=== PATIENT | male | born 1975 | race Caucasian/White ===

== ENCOUNTER → 2016-06-18 | Outpatient (CLI) | payer OTHER ==
[2016-04-26 21:43] VITALS: BP 177/88
[~2016-06-18] MED LIST: CYCL10TA2 PO; FLUO20CA16 PO; HYDR-971 PO; METH4TAB2 PO; NAPR500T8 PO; PRED50TA PO
[2016-06-18 12:24] LABS: BASO % 0 % (0-3); EOS % 3 % (0-3); HEMATOCRIT 40.5 % (39.0-53.0); HEMOGLOBIN 13.5 g/dL (13.0-17.5); LYMPH # 2.9 x10^3/uL (1.0-4.8); LYMPH % 17 % (24-48); MEAN CORPUSCULAR HEMOGLOBIN 31 pg (25-35); MEAN CORPUSCULAR HGB CONC 34 g/dL (31-37); MEAN CORPUSCULAR VOLUME 92 fL (79-100); MONO % 5 % (0-9); NEUT % 75 % (31-73); PLATELET COUNT 217 x10^3/uL (140-400); RED BLOOD COUNT 4.39 x10^6/uL (4.30-5.70); RED CELL DISTRIBUTION WIDTH 13.8 % (11.5-14.5); WHITE BLOOD COUNT 16.9 x10^3/uL (4.0-11.0)
[2016-06-18 12:33] LABS: INR 0.9 (0.8-1.1); PROTHROMBIN TIME PATIENT 11.9 SEC (11.7-14.0)
[2016-06-18 12:43] LABS: ALBUMIN 3.5 g/dL (3.4-5.0); CALCIUM 8.7 mg/dL (8.5-10.1); CREATININE 0.9 mg/dL (0.7-1.3); GFR 92.5; POTASSIUM 4.1 mmol/L (3.5-5.1); TOTAL BILIRUBIN 0.2 mg/dL (0.2-1.0); TOTAL PROTEIN 6.9 g/dL (6.4-8.2)
== END | disposition home or self-care (01) ==
LOC: SURGPAT 11:14
PROVIDERS: ATTEND Neurological Surgery
DX: Z01.818 Encounter for other preprocedural examination (principal)
CPT/HCPCS: 36415; 80053; 85027; 85610; 85730; 87641

== ENCOUNTER 2016-07-08 07:14 | Day surgery (SDC) | payer OTHER ==
[~2016-07-08 07:14] MED LIST changes: +0.9 % SODIUM CHLORIDE 50 ML VIAL. IJ ONE; +BUPIVAC MPF-EPI 0.5%-1:200000 30 ML VIAL. ONE; +BUPIVACAINE 0.5% 50 ML VIAL. ONE; +BUPIVACAINE MPF 0.5% 30 ML VIAL. ONE; +DEXAMETHASONE SOD PHOS 20 MG/5 ML VIAL. ONE; +FENTANYL PF 100 MCG/2 ML VIAL. IV PRN; +FENTANYL PF 100 MCG/2 ML VIAL. ONE; +GELATIN SPONGE SIZE 100. ONE; +IV RINGERS,LACTATED 1000ML 1,000 ML IV SCH; +LIDOCAINE 1% 1 ML SYRINGE. ID PRN; +LIDOCAINE 1%/EPI 1:100,000 20 ML VIAL. ONE; +LIDOCAINE 2% 100 MG/5 ML DISP.SYRIN. ONE; +MIDAZOLAM HCL 2 MG/2 ML VIAL. ONE; +MORPHINE SULFATE 2 MG/ML DISP.SYRIN. IV PRN; +ONDANSETRON PF 4 MG/2 ML VIAL. IV PRN; +ONDANSETRON PF 4 MG/2 ML VIAL. ONE; +PROCHLORPERAZINE 10 MG/2 ML VIAL. IV PRN; +PROPOFOL 20 ML IV ONE; +PROPOFOL 50 ML IV ONE; +REMIFENTANIL 2 MG VIAL. IV ONE; +ROCURONIUM 50 MG/5 ML VIAL. ONE; +THROMBIN 20,000 UNIT SPRAY.SYRN KIT TP ONE
[2016-07-08] MEDS ORDERED: CEFAZOLIN 2GM PREMIX 50 ML IV ONE (07:15)
[2016-07-08] MEDS ORDERED: PHENYLEPHRINE 10 MG/ML VIAL. ONE (08:04)
[2016-07-08] MEDS ORDERED: GLYCOPYRROLATE 1 MG/5 ML VIAL. ONE (09:04)
[2016-07-08] MEDS ORDERED: KETAMINE HCL 500 MG/10 ML VIAL. ONE (09:22)
[2016-07-08] MEDS: BACITRACIN 50,000 UNIT in IV NORMAL SALINE 1000ML BAG 1,000 ML IRR ONE ×2 (09:35→09:43)
[2016-07-08] MEDS ORDERED: DESFLURANE > 120 MINUTES IH ONE (10:02)
[2016-07-08] MEDS ORDERED: PROPOFOL 50 ML IV ONE (10:18)
[2016-07-08] MEDS ORDERED: NEOSTIGMINE METHYLSULFATE 5 MG/5 ML SYRINGE. ONE (10:59)
--- NOTE | 2016-07-08 11:12 | PDOC ---
BRIEF OPERATIVE NOTE Date: Jul 08, 2016 Pre-Op Diagnosis lumbar radiculopathy, lumbar disk herniation Post-Op Diagnosis same Procedure Performed right L5-S1 hemilaminotomy with discectomy Surgeon Al Wash Driller none Anesthesia Type: General Blood Loss 25mL Specimens Obtained disk and decompression Findings herniated disk with mass effect on the adjacent neural elements Complications none apparent Additional Remarks neuromonitoring remained at least baseline throughout the procedure SULY CARROLL MD Jul 08, 2016 11:12
--- NOTE | 2016-07-08 11:18 | DISCH ---
DISCHARGE INSTRUCTIONS Condition on Discharge Condition on Discharge: Stable Activity After Discharge Activity Instructions for Disc: Avoid exertion, Progressive ambulation, Other, see below (avoid strenuous activity or lifting more than 10 lbs; avoid excess twisting or bending) Lifting Instructions after Dis: Do not lift >10 pounds Wound Incision Care Wound/Incision Care: Other, see below (may remove dressing day3 after surgery; keep incision clean and dry; do not soak, scrub, or submerge incision) Contacting the after DC Call your doctor for: Concerns you may have Follow-Up Follow up with: Dr. Carroll in two weeks [phone] SULY CARROLL MD Jul 08, 2016 11:18
[2016-07-08] MEDS ORDERED: FENTANYL PF 100 MCG/2 ML VIAL. ONE (11:30)
[2016-07-08] MEDS: HYDROMORPHONE 2 MG/ML VIAL. IV PRN ×2 (11:35→11:48)
[2016-07-08] MEDS: FENTANYL PF 100 MCG/2 ML VIAL. IV PRN ×4 (11:58→12:45)
[2016-07-08] MEDS ORDERED: OXYC-323 PO (12:16)
[2016-07-08] MEDS ORDERED: OXYCODONE/APAP 5/325 TABLET. ONE (12:31)
[2016-07-08] MEDS ORDERED: OXYCODONE/APAP 5/325 TABLET. PO ONE (12:45)
[2016-07-08 13:00] VITALS: BP 128/80
--- NOTE | 2016-07-09 15:37 | PATHOLOGY ---
PATHOLOGY REPORT * * * * * * * * FINAL DIAGNOSIS: Segments of fibrocartilaginous, adipose, and skeletal muscle tissue and bone, lumbar disc and decompression: - Degenerative changes of fibrocartilaginous tissue. COMMENT: There is no evidence of an acute inflammatory process or malignancy. (JPM:; d/t: 07/09/16) REPORT ELECTRONICALLY SIGNED BY: Wilbetr Brito M.D. DATE/TIME: 07/09/2016 15:36 * * * * * * * * GROSS PATHOLOGY: Received in formalin labeled "Bharath Gaytan-lumbar disc and decompression," are multiple segments of white-cronin to pink-cronin rubbery and gritty tissue admixed with possible bone measuring 5.4 x 4.5 x 0.7 cm in aggregate dimensions. The tissue is submitted representatively in cassette A1, following decalcification. (TTL; 07/08/2016) INITIAL CPT CODE(S): A; 51338, 90532 Professional services [place] [address] Technical services performed by [facility] at [address] [place] [address] [address], [place] [address]. SPECIMEN(S) RECEIVED: A.Lumbar disc and decompression CLINICAL HISTORY: Radiculopathy PATIENT: BHARATH GAYTAN /AGE: 9 1975 (Age: 41) PATIENT #: [id number] ALT CASE #: SPECIMEN COLLECTION DATE: 07/08/2016 SPECIMEN RECEIVED DATE: 07/08/2016 [facility] - [address] [place] [address] - PHONE: [phone] * * * END OF REPORT * * *
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
== END 2016-07-08 13:15 | disposition home or self-care (01) ==
LOC: SURG 07:14
PROVIDERS: ATTEND Neurological Surgery
DX: M51.16 Intervertebral disc disorders with radiculopathy, lumbar region (principal); M19.90 Unspecified osteoarthritis, unspecified site; F32.9 Major depressive disorder, single episode, unspecified; F17.200 Nicotine dependence, unspecified, uncomplicated
CPT/HCPCS: 63030; 76000; 88304; 88311; J0690; J1100; J1170; J2250; J2405; J2704; J2710; J3010; J3490; J7030; J7120

== ENCOUNTER 2016-10-30 17:59 | Emergency (ER) | payer OTHER ==
[~2016-10-30] VITALS: Ht 182.9 cm; Wt 111.6 kg
[~2016-10-30 17:59] MED LIST changes: -0.9 % SODIUM CHLORIDE 50 ML VIAL. IJ ONE; -BUPIVAC MPF-EPI 0.5%-1:200000 30 ML VIAL. ONE; -BUPIVACAINE 0.5% 50 ML VIAL. ONE; -BUPIVACAINE MPF 0.5% 30 ML VIAL. ONE; -DEXAMETHASONE SOD PHOS 20 MG/5 ML VIAL. ONE; -FENTANYL PF 100 MCG/2 ML VIAL. IV PRN; -FENTANYL PF 100 MCG/2 ML VIAL. ONE; -GELATIN SPONGE SIZE 100. ONE; -IV RINGERS,LACTATED 1000ML 1,000 ML IV SCH; -LIDOCAINE 1% 1 ML SYRINGE. ID PRN; -LIDOCAINE 1%/EPI 1:100,000 20 ML VIAL. ONE; -LIDOCAINE 2% 100 MG/5 ML DISP.SYRIN. ONE; -MIDAZOLAM HCL 2 MG/2 ML VIAL. ONE; -MORPHINE SULFATE 2 MG/ML DISP.SYRIN. IV PRN; -ONDANSETRON PF 4 MG/2 ML VIAL. IV PRN; -ONDANSETRON PF 4 MG/2 ML VIAL. ONE; +OXYC-323 PO; -PROCHLORPERAZINE 10 MG/2 ML VIAL. IV PRN; -PROPOFOL 20 ML IV ONE; -PROPOFOL 50 ML IV ONE; -REMIFENTANIL 2 MG VIAL. IV ONE; -ROCURONIUM 50 MG/5 ML VIAL. ONE; -THROMBIN 20,000 UNIT SPRAY.SYRN KIT TP ONE
[2016-10-30 18:05] VITALS: BP 153/103
[2016-10-30] MEDS ORDERED: PRED20TA PO (18:24)
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
[2016-10-30] MEDS ORDERED: methylPREDNISolone SOD SUCC PF 125 MG/2 ML VIAL. IM ONE (18:30)
== END 2016-10-30 18:30 | disposition home or self-care (01) ==
LOC: ER 17:59
DX: M54.42 Lumbago with sciatica, left side (principal); Z98.890 Other specified postprocedural states
CPT/HCPCS: 96372; 99283; J2930

== ENCOUNTER → 2016-12-01 | Outpatient (CLI) | payer OTHER ==
[~2016-12-01] MED LIST changes: +PRED20TA PO
--- NOTE | 2016-12-01 09:33 | RAD ---
EXAM: MRI LUMBAR SPINE WITHOUT CONTRAST. HISTORY: Low back pain and left lower extremity radiculopathy after injury. Prior discectomy. TECHNIQUE: Magnetic resonance images of the lumbar spine were obtained without contrast. COMPARISON: March 02, 2016. FINDINGS: Alignment is normal. No fractures are identified. Degenerative disc disease is mild at L5-S1. The conus is at L1 and appears normal. At T12-L1, there is a moderate central disc protrusion measuring 5 mm anteroposteriorly. There is no clear interval change. It abuts the anterior conus with mild deformity. From L1 through L5, there is mild facet and ligamentum flavum hypertrophy. There is no stenosis. At L5-S1, there are changes of right hemilaminotomy and interval resection of the right-sided portion of a broad disc herniation. There is interval increase in the left-sided portion which now narrows the left lateral recess moderately to severely with mass effect on the left S1 nerve root. It measures 5 mm anteroposteriorly. There is no significant neural foraminal stenosis. IMPRESSION: 1. The left portion of the disc herniation at L5-S1 appears increased and now results in moderate to severe left lateral recess stenosis with mass effect on the left S1 nerve root. The right lateral recess has been decompressed in the interval. 2. Moderate disc herniation at T12-L1 abuts the anterior conus with mild deformity. Electronically signed by: Rayray Sullivan MD (12/01/2016 9:30 AM)
== END | disposition home or self-care (01) ==
LOC: MRI 08:17
PROVIDERS: ATTEND Neurological Surgery
DX: M48.06 Spinal stenosis, lumbar region (principal); M51.17 Intervertebral disc disorders with radiculopathy, lumbosacral region; M51.15 Intervertebral disc disorders with radiculopathy, thoracolumbar region; M24.28 Disorder of ligament, vertebrae; S39.92XD Unspecified injury of lower back, subsequent encounter; Z98.890 Other specified postprocedural states; X58.XXXD Exposure to other specified factors, subsequent encounter
CPT/HCPCS: 72148

== ENCOUNTER 2016-12-07 16:24 | Emergency (ER) | payer OTHER ==
[~2016-12-07] VITALS: Ht 182.9 cm; Wt 111.1 kg
[2016-12-07 16:49] VITALS: BP 141/87
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
[2016-12-07] MEDS ORDERED: ORPHENADRINE CITRATE 60 MG/2 ML VIAL. IM ONE (17:15)
[2016-12-07] MEDS ORDERED: KETOROLAC TROMETHAMINE 60 MG/2 ML INJ. IM ONE (17:15)
[2016-12-07] MEDS ORDERED: CYCL10TA2 PO (17:15)
[2016-12-07] MEDS ORDERED: ACET-704 PO (17:15)
[2016-12-07] MEDS ORDERED: fentaNYL PF VIAL 100 MCG/2 ML VIAL IM ONE (17:15)
[2016-12-07] MEDS ORDERED: NAPR500T PO (17:15)
== END 2016-12-07 17:45 | disposition home or self-care (01) ==
LOC: ER 16:24
DX: M54.42 Lumbago with sciatica, left side (principal); G89.29 Other chronic pain
CPT/HCPCS: 96372; 99284; J1885; J2360; J3010

== ENCOUNTER → 2016-12-22 | Outpatient (CLI) | payer OTHER ==
[2016-12-07 16:49] VITALS: BP 141/87
[~2016-12-22] MED LIST changes: +ACET-704 PO; +METH-38 PO; +NAPR500T PO; +SENN1TAB7 PO
[2016-12-22 14:27] LABS: BASO # 0.1 x10^3/uL (0.0-0.2); BASO % 1 % (0-3); EOS % 3 % (0-3); HEMATOCRIT 42.4 % (39.0-53.0); HEMOGLOBIN 14.5 g/dL (13.0-17.5); LYMPH # 2.3 x10^3/uL (1.0-4.8); LYMPH % 23 % (24-48); MEAN CORPUSCULAR HEMOGLOBIN 31 pg (25-35); MEAN CORPUSCULAR HGB CONC 34 g/dL (31-37); MEAN CORPUSCULAR VOLUME 90 fL (79-100); MONO % 6 % (0-9); NEUT % 67 % (31-73); PLATELET COUNT 194 x10^3/uL (140-400); RED CELL DISTRIBUTION WIDTH 14.3 % (11.5-14.5)
[2016-12-22 14:41] LABS: PROTHROMBIN TIME PATIENT 12.5 SEC (11.7-14.0)
[2016-12-22 14:47] LABS: ALBUMIN 3.7 g/dL (3.4-5.0); CALCIUM 9.3 mg/dL (8.5-10.1); CREATININE 0.8 mg/dL (0.7-1.3); POTASSIUM 4.1 mmol/L (3.5-5.1); TOTAL BILIRUBIN 0.2 mg/dL (0.2-1.0); TOTAL PROTEIN 7.5 g/dL (6.4-8.2)
== END | disposition home or self-care (01) ==
LOC: SURGPAT 13:25
PROVIDERS: ATTEND Neurological Surgery
DX: M54.16 Radiculopathy, lumbar region (principal)
CPT/HCPCS: 36415; 80053; 85027; 85610; 85730; 87641

== ENCOUNTER 2016-12-23 12:12 | Observation (INO) | payer OTHER ==
[~2016-12-23] VITALS: Ht 182.9 cm; Wt 112.1 kg
[2016-12-23] VITALS (10 sets, daily range): BP systolic 115–138; BP diastolic 70–90
[~2016-12-23 12:12] MED LIST changes: +BACITRACIN 50,000 UNIT in IV NORMAL SALINE 1000ML BAG 1,000 ML IRR ONE; +BUPIVACAINE 0.5% 50 ML VIAL. ONE; +DEXAMETHASONE SOD PHOS 20 MG/5 ML VIAL. ONE; +GLYCOPYRROLATE 1 MG/5 ML VIAL. ONE; +LIDOCAINE 1%/EPI 1:100,000 20 ML VIAL. ONE; +LIDOCAINE 2% PF Vial for OR 5 ML VIAL. ONE; -METH-38 PO; +MIDAZOLAM HCL/PF 2 MG/2 ML VIAL. ONE; +ONDANSETRON PF 4 MG/2 ML VIAL. ONE; +PHENYLEPHRINE 10 MG/ML VIAL. ONE; +PROPOFOL 20 ML IV ONE; +PROPOFOL 50 ML IV ONE; +REMIFENTANIL 2 MG VIAL. IV ONE; +ROCURONIUM 50 MG/5 ML VIAL. ONE; -SENN1TAB7 PO; +SEVOFLURANE > 120 MINUTES. IH ONE; +fentaNYL PF VIAL 100 MCG/2 ML VIAL ONE
[2016-12-23] MEDS ORDERED: IV RINGERS,LACTATED 1000ML 1,000 ML IV SCH ×2 (12:45→15:27)
[2016-12-23] MEDS ORDERED: SUCCINYLCHOLINE 200 MG/10 ML VIAL. ONE (12:55)
[2016-12-23] MEDS ORDERED: fentaNYL PF VIAL 100 MCG/2 ML VIAL ONE ×2 (13:10→15:27)
[2016-12-23] MEDS ORDERED: PROPOFOL 50 ML IV ONE (14:07)
[2016-12-23] MEDS ORDERED: NEOSTIGMINE 10 MG/10 ML VIAL. ONE (14:52)
[2016-12-23] MEDS ORDERED: DESFLURANE > 120 MINUTES IH ONE (14:55)
--- NOTE | 2016-12-23 15:27 | PDOC ---
BRIEF OPERATIVE NOTE Date: Dec 23, 2016 Pre-Op Diagnosis recurrent disk herniation, lumbar radiculopathy Post-Op Diagnosis same Procedure Performed left L5-S1 hemilaminotomy with discectomy Surgeon Al [employer]el[employer] Repairer none Anesthesiologist [facility] Anesthesia Type: General Blood Loss 25mL Specimens Obtained disk and decompression Findings large disk herniation left L5-S1, neuromonitoring remained at least baseline throughout the procedure Complications none apparent SULY CARROLL MD Dec 23, 2016 15:27
[2016-12-23] MEDS ORDERED: LIDOCAINE 1% 1 ML SYRINGE. ID PRN (15:30)
[2016-12-23] MEDS ORDERED: HYDROmorphone 2 MG/ML VIAL IV PRN (15:30)
[2016-12-23] MEDS: fentaNYL PF VIAL 100 MCG/2 ML VIAL IV PRN ×4 (15:30→16:08)
[2016-12-23] MEDS ORDERED: fentaNYL PF VIAL 100 MCG/2 ML VIAL IV PRN ×2 (15:30→17:15)
[2016-12-23] MEDS ORDERED: ONDANSETRON PF 4 MG/2 ML VIAL. IV PRN ×2 (15:30→17:15)
[2016-12-23] MEDS ORDERED: PROCHLORPERAZINE 10 MG/2 ML VIAL. IV PRN (15:30)
--- NOTE | 2016-12-23 15:33 | DISCH ---
DISCHARGE INSTRUCTIONS Condition on Discharge Condition on Discharge: Stable Activity After Discharge Activity Instructions for Disc: Avoid exertion, Progressive ambulation, Other, see below (avoid strenuous activity, no excess twisting or bending, no lifting more than 10lbs) Lifting Instructions after Dis: Do not lift >10 pounds Wound Incision Care Wound/Incision Care: Ice to area for comfort, Other, see below (may remove dressing day 3 after surgery; do not soak, scrub, or submerge incision) Contacting the after DC Call your doctor for: Concerns you may have Follow-Up Follow up with: Dr. Carroll, Neurosurgery, in two weeks [phone] SULY CARROLL MD Dec 23, 2016 15:33
[2016-12-23] MEDS ORDERED: MORPHINE SULFATE 2 MG/ML DISP.SYRIN. ONE (15:42)
[2016-12-23] MEDS: MORPHINE SULFATE 2 MG/ML DISP.SYRIN. IV PRN ×4 (15:51→16:44)
[2016-12-23] MEDS ORDERED: OXYC-323 PO (16:13)
[2016-12-23] MEDS ORDERED: METH-38 PO (16:13)
[2016-12-23] MEDS ORDERED: SENN1TAB7 PO (16:16)
[2016-12-23] MEDS: oxyCODONE/APAP 5/325 1 TAB TABLET PO PRN ×2 (16:55→20:43)
[2016-12-23] MEDS ORDERED: MAG HYDROX/ALUMINUM HYD/SIMETH 30 ML ORAL.SUSP PO PRN (17:15)
[2016-12-23] MEDS ORDERED: HYDROcodone/APAP 5/325MG 1 TAB TABLET PO PRN (17:15)
[2016-12-23] MEDS ORDERED: diphenhydrAMINE HCL 25 MG CAPSULE PO PRN (17:15)
[2016-12-23] MEDS ORDERED: ZOLPIDEM 5 MG TABLET. PO PRN (17:15)
[2016-12-23] MEDS ORDERED: MAGNESIUM HYDROXIDE 2,400 MG/30 ML ORAL.SUSP. PO PRN (17:15)
[2016-12-23] MEDS ORDERED: diphenhydrAMINE 50 MG/ML VIAL IV PRN (17:15)
[2016-12-23] MEDS ORDERED: CALCIUM CARBONATE 500 MG TAB.CHEW PO PRN (17:15)
[2016-12-23] MEDS ORDERED: 0.9 % SODIUM CHLORIDE 10 ML DISP.SYRIN. IV PRN (17:15)
[2016-12-23] MEDS ORDERED: NALOXONE 0.4 MG/ML VIAL. IV PRN (17:15)
[2016-12-23] MEDS ORDERED: ACETAMINOPHEN 325 MG TABLET. PO PRN (17:15)
[2016-12-23] MEDS: METHOCARBAMOL 750 MG TABLET PO SCH (20:42)
[2016-12-23] MEDS: DOCUSATE SODIUM 100 MG CAPSULE. PO SCH (20:42)
[2016-12-23] MEDS: SENNOSIDES/DOCUSATE 8.6/50MG TABLET. PO SCH (20:42)
[2016-12-24] MEDS: HYDROcodone/APAP 5/325MG 1 TAB TABLET PO PRN ×2 (01:26→08:12)
[2016-12-24] MEDS: fentaNYL PF VIAL 100 MCG/2 ML VIAL IV PRN ×4 (03:10→10:32)
[2016-12-24 03:15] VITALS: BP 138/90
[2016-12-24 06:30] VITALS: BP 121/86
[2016-12-24] MEDS ORDERED: CALCIUM CARB/VIT D3 500/200 TABLET. PO SCH (08:00)
[2016-12-24] MEDS ORDERED: FERROUS SULFATE 325 MG TABLET. PO SCH (08:00)
[2016-12-24] MEDS: SENNOSIDES/DOCUSATE 8.6/50MG TABLET. PO SCH (08:11)
[2016-12-24] MEDS: METHOCARBAMOL 750 MG TABLET PO SCH (08:11)
[2016-12-24] MEDS: DOCUSATE SODIUM 100 MG CAPSULE. PO SCH (08:16)
[2016-12-24] MEDS ORDERED: MULTIVITAMIN with MINERAL TABLET. PO SCH (09:00)
[2016-12-24] MEDS ORDERED: oxyCODONE/APAP 5/325 1 TAB TABLET PO PRN ×2 (10:15)
--- NOTE | 2016-12-24 10:59 | PDOC ---
SUBJECTIVE Subjective Reports resolution of leg pain. Has ambulated without significant problems. + bm. Reports incisional pain not controlled with the requested lortab. OBJECTIVE Vital Signs Vital Signs Date Time Temp Pulse Resp B/P (MAP) Pulse Ox O2 Delivery O2 Flow Rate FiO2 12/24/16 10:32 18 Room Air 12/24/16 10:32 18 Room Air 12/24/16 09:15 16 Room Air 12/24/16 08:45 16 Room Air 12/24/16 08:12 18 Room Air 12/24/16 08:11 18 Room Air 12/24/16 08:00 Room Air 12/24/16 07:00 94 12/24/16 06:30 98.0 22 121/86 (98) 95 Room Air 98.0 12/24/16 06:18 22 95 Room Air 12/24/16 03:15 98.0 78 22 138/90 (106) 94 Room Air 98.0 12/24/16 03:10 20 94 Room Air 12/24/16 01:26 20 Room Air 12/23/16 23:00 98.1 82 20 123/70 (87) 93 Room Air 98.1 12/23/16 22:15 88 20 133/88 (103) 94 Room Air 12/23/16 22:00 20 94 Room Air 12/23/16 21:15 84 20 125/90 (102) 93 Room Air 12/23/16 20:43 20 93 Room Air 12/23/16 20:15 Room Air 12/23/16 20:15 73 20 123/88 (100) 93 Room Air 12/23/16 20:00 Room Air 12/23/16 19:45 79 18 124/85 (98) 92 Room Air 12/23/16 19:15 98.5 77 20 126/76 (93) 93 Room Air 98.5 12/23/16 18:42 97.3 74 18 115/78 (90) Room Air 97.3 12/23/16 18:15 62 122/70 (87) 12/23/16 17:45 66 128/71 (90) 12/23/16 17:30 98.0 70 20 138/90 (106) 97 Room Air 98.0 12/23/16 16:55 18 12/23/16 16:47 78 20 146/84 94 Room Air 12/23/16 16:44 20 12/23/16 16:32 90 18 110/75 92 Room Air 12/23/16 16:17 74 18 156/85 74 Room Air 12/23/16 16:17 Mask 10 12/23/16 16:08 17 12/23/16 16:02 74 158/93 95 Room Air 12/23/16 16:01 18 Room Air 12/23/16 15:59 18 Room Air 12/23/16 15:51 97 12/23/16 15:47 74 16 146/91 95 Room Air 12/23/16 15:42 16 96 12/23/16 15:32 72 16 152/95 97 Room Air 12/23/16 15:30 18 Room Air 12/23/16 15:17 97.0 81 16 134/81 100 Simple Mask 10 97.0 12/23/16 12:37 97.7 82 18 126/95 96 Room Air 97.7 12/23/16 12:34 97.7 82 20 96 97.7 I & O Intake and Output 12/24/16 06:59 Intake Total 3310 ml Output Total 1300 ml Balance 2010 ml Intake Oral 1510 ml IV Total 1800 ml Output Urine Total 1300 ml # Voids 5 PHYSICAL EXAM Physical Exam AAOx4, NAD, SHEPHERD 5/5, sensation intact LT, c/d/i flat ASSESSMENT/PLAN Assessment/Plan POD 1 L5-S1 discectomy -recovering well thus far with resolution of leg pain -percocet may provide better po pain control of incisional pain, also continue muscle relaxants and ice -zofran prn nausea -anticipate d/c today if continues to do well Problems: SULY CARROLL MD Dec 24, 2016 10:59
[2016-12-24 11:15] VITALS: BP 121/95
--- NOTE | 2016-12-24 15:17 | OP ---
DATE OF SURGERY: 12/23/2016 SURGEON: Dr. Brijesh Carroll. RECONDITIONING ASSOCIATE: None. PREOPERATIVE DIAGNOSES: Recurrent L5-S1 disk herniation with lumbar radiculopathy. POSTOPERATIVE DIAGNOSES: Recurrent L5-S1 disk herniation with lumbar radiculopathy. PROCEDURE: A left L5-S1 hemilaminotomy with a diskectomy. ANESTHESIA: General. COMPLICATIONS: None intraprocedurally. INDICATIONS FOR THE PROCEDURE: The patient is a pleasant 41-year-old male who, many months ago, underwent a right L5-S1 diskectomy for a right-sided lumbar radiculopathy. He did well in this regard with resolution of the symptoms. Recently, he presented with pain radiating down the opposite leg, the left lower extremity. Imaging was obtained revealing a recurrent disk herniation at L5-S1 on the contralateral side from the previous diskectomy. Please refer to the patient chart for additional details. DESCRIPTION OF PROCEDURE: After informed consent was obtained, the patient was brought into the operating room. He was placed under general anesthesia. He was placed in the prone position on the Emil frame. All pressure points were checked and padded appropriately. Neuromonitoring was instituted and baseline potentials were obtained. The lumbar region was prepped and draped in the usual sterile fashion. The patient's previous lumbar incision was reopened with a 10 blade scalpel. Monopolar electrocautery was utilized to dissect the avascular midlines of the spinous processes of lumbar 5 and sacral 1. This dissection was carried leftward across the lamina at this location. The level was verified with fluoroscopy prior to the initiation of decompression. A left hemilaminotomy was performed at L5-S1 utilizing a pneumatic drill as well as a Kerrison rongeur. The underlying ligament was dissected free with a Vinton and a blunt nerve hook and removed with Kerrison rongeur. Careful dissection of the ligament from the thecal sac was performed during this process. There was some degree of scar tissue noted. The neural elements were gently retracted medially and a prominent annulus was identified. Annulotomy was performed with an 11 blade scalpel and disk material was encountered under some pressure. Diskectomy was performed with a pituitary rongeur. Additional disk material was gently teased posterolaterally with a blunt nerve hook and removed with pituitary rongeur. Vinton was also utilized to gently tease disk material posterolaterally into the lateral recess and removed with a pituitary rongeur. Large amount of disk material was removed including a large prominent fragment that appeared to be a majority of the mass effect in lateral recess. Upon completion of diskectomy, the adjacent neural elements were noted to be very well decompressed. This was verified with direct visualization as well as gentle palpation with the Dominic. The wound was generously irrigated with antibiotic irrigation prior to the final closure. Pristine hemostasis was achieved with FloSeal, cottonoids and some use of bipolar electrocautery. The muscles and fascia were then reapproximated with 0 Vicryl in a simple interrupted fashion. Subcutaneous tissues were reapproximated with 2-0 Vicryl in an interrupted inverted fashion and the skin was reapproximated with 4-0 Vicryl in a running subcuticular fashion. Mastisol and Steri-Strips were applied. The wound was dressed with Telfa and Tegaderm. At the end of the procedure, all needle and sponge counts were correct x 2. The patient was extubated in the operating room and taken to recovery in stable condition. Neuromonitoring potentials remained at least at baseline throughout the duration of procedure. There were no intraprocedural complications apparent. BRIJESH CARROLL MD DR: JULIO/danette JOB#: [id number] / [id number]
--- NOTE | 2016-12-26 16:51 | PATHOLOGY ---
PATHOLOGY REPORT * * * * * * * * FINAL DIAGNOSIS: Fragments of fibrocartilaginous and fibroadipose tissue and bone, lumbar disc and decompression: - Degenerative changes of fibrocartilaginous tissue. COMMENT: There is no evidence of an acute inflammatory process or malignancy. (JPM:mgr; 12/26/2016) REPORT ELECTRONICALLY SIGNED BY: Wilbert Brito M.D. DATE/TIME: 12/26/2016 16:50 * * * * * * * * GROSS PATHOLOGY: Received in formalin labeled "Bharath Gaytan, lumbar disc and decompression" are multiple segments of cronin, rubbery, and gritty tissue admixed with bone. The specimen measures 2.9 x 2.7 x 1.0 cm in aggregate dimensions. The tissue is submitted representatively in cassette A1, following decalcification. (JPM; 12/24/16) INITIAL CPT CODE(S): A; 65806, 80663 Professional services performed [place] [facility] [place] [address] Technical services performed by [facility] at [address] [place] [address]. SPECIMEN(S) RECEIVED: A.Lumbar disc and decompression CLINICAL HISTORY: Recurrent herniated disc PATIENT: BHARATH GAYTAN /AGE: 9 1975 (Age: 41) PATIENT #: [id number] ALT CASE #: SPECIMEN COLLECTION DATE: 12/23/2016 SPECIMEN RECEIVED DATE: 12/24/2016 [facility] - [address] [place] [address] - PHONE: [phone] * * * END OF REPORT * * *
== END 2016-12-24 12:25 | disposition home or self-care (01) ==
LOC: SURG 12:12 → 4 SOUTHEST 17:25
PROVIDERS: ADMIT Neurological Surgery; ATTEND Neurological Surgery
DX: M51.17 Intervertebral disc disorders with radiculopathy, lumbosacral region (principal)
CPT/HCPCS: 63030; 76000; 96374; 96376; 97161; 97165; G0378; J0330; J1100; J2001; J2250; J2270; J2405; J2704; J2710; J3010; J3360; J3490; J7030; 88304; 88311; G0379

== ENCOUNTER 2017-01-13 22:17 | Emergency (ER) | payer OTHER ==
[~2017-01-13] VITALS: Ht 182.9 cm; Wt 112.0 kg
[~2017-01-13 22:17] MED LIST changes: -BACITRACIN 50,000 UNIT in IV NORMAL SALINE 1000ML BAG 1,000 ML IRR ONE; -BUPIVACAINE 0.5% 50 ML VIAL. ONE; -DEXAMETHASONE SOD PHOS 20 MG/5 ML VIAL. ONE; -GLYCOPYRROLATE 1 MG/5 ML VIAL. ONE; -LIDOCAINE 1%/EPI 1:100,000 20 ML VIAL. ONE; -LIDOCAINE 2% PF Vial for OR 5 ML VIAL. ONE; +METH-38 PO; -MIDAZOLAM HCL/PF 2 MG/2 ML VIAL. ONE; -ONDANSETRON PF 4 MG/2 ML VIAL. ONE; -PHENYLEPHRINE 10 MG/ML VIAL. ONE; -PROPOFOL 20 ML IV ONE; -PROPOFOL 50 ML IV ONE; -REMIFENTANIL 2 MG VIAL. IV ONE; -ROCURONIUM 50 MG/5 ML VIAL. ONE; +SENN1TAB7 PO; -SEVOFLURANE > 120 MINUTES. IH ONE; -fentaNYL PF VIAL 100 MCG/2 ML VIAL ONE
[2017-01-13 22:22] VITALS: BP 152/103
[2017-01-13] MEDS ORDERED: IV NORMAL SALINE 500ML BAG 500 ML IV ONE (22:30)
[2017-01-13] MEDS ORDERED: ONDANSETRON PF 4 MG/2 ML VIAL. IV ONE (22:30)
[2017-01-13] MEDS: HYDROmorphone 2 MG/ML VIAL IV PRN ×2 (22:34→23:44)
[2017-01-13] MEDS ORDERED: fentaNYL PF VIAL 100 MCG/2 ML VIAL IV PRN (23:00)
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
[2017-01-14] MEDS: HYDROmorphone 2 MG/ML VIAL IV PRN (00:16)
[2017-01-14] MEDS ORDERED: HYDR-2758 PO (00:17)
== END 2017-01-14 00:40 | disposition home or self-care (01) ==
LOC: ER 22:17
DX: M54.16 Radiculopathy, lumbar region (principal); G89.29 Other chronic pain; Z90.89 Acquired absence of other organs
CPT/HCPCS: 96361; 96374; 96375; 96376; 99285; J1170; J2405; J3010; J7040

== ENCOUNTER 2017-10-06 15:41 | Emergency (ER) | payer SELFPAY, MEDICAID ==
[2017-10-06] MEDS ORDERED: MORPHINE SULFATE 10 MG/ML VIAL. (16:14)
[2017-10-06] MEDS ORDERED: ORPHENADRINE CITRATE 60 MG/2 ML VIAL. (16:14)
[2017-10-06] MEDS: ORPHENADRINE CITRATE 60 MG/2 ML VIAL. IM (16:17)
[2017-10-06] MEDS: MORPHINE SULFATE 10 MG/ML VIAL. IM (16:18)
== END 2017-10-06 16:40 | disposition home or self-care (01) ==
LOC: ER 15:41
DX: M54.42 Lumbago with sciatica, left side (principal); F17.200 Nicotine dependence, unspecified, uncomplicated
CPT/HCPCS: 96372; 99284; J2270; J2360

== ENCOUNTER 2018-04-12 16:56 | Emergency (ER) | payer BC ==
[~2018-04-12] VITALS: Ht 182.9 cm; Wt 113.4 kg
[~2018-04-12 16:56] MED LIST changes: +BACL20TA PO; +HYDR-2758 PO; +HYDR-965 PO; +NAPR-683 PO; -NAPR500T PO; -SENN1TAB7 PO; +SENN1TAB8 PO
[2018-04-12 17:52] VITALS: BP 137/89
[2018-04-12] MEDS ORDERED: METH4TAB2 PO (18:24)
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
[2018-04-12] MEDS ORDERED: KETOROLAC 60 MG/2 ML INJ. IM ONE (18:30)
== END 2018-04-12 18:58 | disposition home or self-care (01) ==
LOC: ER 16:56
DX: M54.5 Low back pain (principal); G89.29 Other chronic pain
CPT/HCPCS: 96372; 99283; J1885

== ENCOUNTER 2018-04-30 19:20 | Emergency (ER) | payer BC ==
[~2018-04-30] VITALS: Ht 182.9 cm; Wt 113.4 kg
[~2018-04-30 19:20] MED LIST changes: -HYDR-2758 PO; +HYDR-2761 PO; +HYDR-3164 PO; +HYDR-3165 PO; -HYDR-965 PO; -HYDR-971 PO; -OXYC-323 PO; +OXYC1TAB15 PO
[2018-04-30] MEDS ORDERED: GABA-585 PO (20:24)
[2018-04-30] MEDS ORDERED: HYDR-3164 PO (20:24)
[2018-04-30] MEDS ORDERED: diazePAM 5 MG TABLET PO ONE (20:30)
[2018-04-30] MEDS ORDERED: KETOROLAC 15 MG/ML VIAL. IV ONE (20:30)
[2018-04-30] MEDS ORDERED: HYDROcodone/APAP 5/325MG 1 TAB TABLET PO ONE (20:30)
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
[2018-04-30 21:07] VITALS: BP 121/77
== END 2018-04-30 21:07 | disposition home or self-care (01) ==
LOC: ER 19:20
DX: M51.36 Other intervertebral disc degeneration, lumbar region (principal); M47.896 Other spondylosis, lumbar region; M48.061 Spinal stenosis, lumbar region without neurogenic claudication; R05 Cough; M25.552 Pain in left hip; G89.29 Other chronic pain; F17.210 Nicotine dependence, cigarettes, uncomplicated; F12.90 Cannabis use, unspecified, uncomplicated
CPT/HCPCS: 96374; 99283; J1885

== ENCOUNTER 2019-12-12 20:58 | Emergency (ER) | payer BC, OTHER ==
[~2019-12-12] VITALS: Ht 182.9 cm; Wt 102.7 kg
[~2019-12-12 20:58] MED LIST changes: +GABA-585 PO; +SENN-161 PO; -SENN1TAB8 PO
[2019-12-12 21:51] VITALS: BP 137/91
[2019-12-12] MEDS ORDERED: CYCLOBENZAPRINE 10 MG TABLET. PO ONE (22:45)
[2019-12-12] MEDS ORDERED: KETOROLAC 60 MG/2 ML VIAL. IM ONE (22:45)
== END 2019-12-12 22:26 | disposition home or self-care (01) ==
LOC: ER 20:58
DX: M54.9 Dorsalgia, unspecified (principal); Z53.21 Procedure and treatment not carried out due to patient leaving prior to being seen by health care provider

== ENCOUNTER 2019-12-13 15:34 | Emergency (ER) | payer OTHER ==
[2019-12-12 21:51] VITALS: BP 137/91
== END 2019-12-13 18:00 | disposition left against medical advice (07) ==
LOC: ER 15:34
DX: M54.9 Dorsalgia, unspecified (principal); Z53.21 Procedure and treatment not carried out due to patient leaving prior to being seen by health care provider

== ENCOUNTER 2020-08-14 23:38 | Emergency (ER) | payer OTHER ==
[~2020-08-14] VITALS: Ht 182.9 cm; Wt 104.5 kg
[2020-08-15 00:43] VITALS: BP 159/115
== END 2020-08-15 02:00 | disposition left against medical advice (07) ==
LOC: ER 23:38
DX: M54.5 Low back pain (principal); Z53.21 Procedure and treatment not carried out due to patient leaving prior to being seen by health care provider
CPT/HCPCS: 99281

== ENCOUNTER → 2020-09-19 | Outpatient (CLI) | payer OTHER ==
--- NOTE | 2020-09-19 15:36 | KCIC ---
MR LUMBAR SPINE WO [id number] Date: 09/19/2020 1:30 PM Indication: Reason: M54.5 M54.16 LUMBAGO / Spl. Instructions: Two previous lumbar surgeries. / Histo ry: New onset of severe LBP and BLE pain. Comparison: 12/01/2016. Technique: Multi-planar multi-weighted magnetic resonance imaging of the lumbar spine was performed w ithout intravenous contrast using the standard lumbar spine protocol. FINDINGS: The lumbar spine is normally aligned. No acute fracture. Mild to moderate multilevel degenerative dis c desiccation and disc height loss. Degenerative endplate edema at L5-S1. The conus terminates at a normal level. No abnormal signal is seen within the visualized distal spina l cord. No clumping of intrathecal nerve roots. No soft tissue abnormality in the visualized abdomen or pelvis. T12-L1: Disc bulge with annular tear and central protrusion which abuts the ventral conus. Mild spina l canal stenosis. No neural foraminal narrowing. L1-L2: No disc bulge. No facet arthropathy. No significant spinal stenosis or neural foraminal narrow ing. L2-L3: Disc bulge. Mild facet arthropathy. No significant spinal stenosis. Mild bilateral neural fora annabel narrowing, progressed from the prior. L3-L4: Disc bulge. Moderate facet arthropathy. No significant spinal stenosis or neural foraminal jose rowing. L4-L5: Disc bulge. Mild right and moderate left facet arthropathy. No significant spinal stenosis or neural foraminal narrowing. L5-S1: Posterior decompression. Central and left paracentral protrusion, increased. Mild spinal canal stenosis. Severe left lateral recess narrowing with mass effect on the left S1 nerve root. Moderate left neural foraminal narrowing. IMPRESSION: Recurrent/enlarging disc protrusion at L5-S1 which severely narrows the left lateral recess exerts ma ss effect on the S1 nerve root. Electronically signed by: Samuel Calderón MD (09/19/2020 3:33 PM) [id number]
== END ==
LOC: KCIC MRI 12:54
PROVIDERS: ATTEND Neurological Surgery
DX: M47.26 Other spondylosis with radiculopathy, lumbar region (principal); M48.07 Spinal stenosis, lumbosacral region
CPT/HCPCS: 72148

== ENCOUNTER → 2020-10-03 | Outpatient (CLI) | payer MEDICARE ==
[2020-10-03 13:34] LABS: BASO % 1 % (0-3); EOS # 0.3 x10^3/uL (0.0-0.7); EOS % 3 % (0-3); HEMATOCRIT 42.1 % (39.0-53.0); HEMOGLOBIN 14.8 g/dL (13.0-17.5); LYMPH # 2.4 x10^3/uL (1.0-4.8); LYMPH % 27 % (24-48); MEAN CORPUSCULAR HEMOGLOBIN 31 pg (25-35); MEAN CORPUSCULAR HGB CONC 35 g/dL (31-37); MEAN CORPUSCULAR VOLUME 89 fL (79-100); MONO # 0.6 x10^3/uL (0.0-1.1); MONO % 6 % (0-9); NEUT # 5.5 x10^3/uL (1.8-7.7); NEUT % 63 % (31-73); PLATELET COUNT 226 x10^3/uL (140-400); RED BLOOD COUNT 4.72 x10^6/uL (4.30-5.70); RED CELL DISTRIBUTION WIDTH 13.6 % (11.5-14.5); WHITE BLOOD COUNT 8.8 x10^3/uL (4.0-11.0)
[2020-10-03 13:39] LABS: ALBUMIN/GLOBULIN RATIO 1.5 (1.0-1.7); CALCIUM 8.4 mg/dL (8.5-10.1); CREATININE 0.8 mg/dL (0.7-1.3); GFR 104.1; POTASSIUM 4.6 mmol/L (3.5-5.1); TOTAL BILIRUBIN 0.2 mg/dL (0.2-1.0); TOTAL PROTEIN 6.6 g/dL (6.4-8.2)
[2020-10-03 13:42] LABS: PROTHROMBIN TIME PATIENT 11.6 SEC (11.7-14.0)
--- NOTE | 2020-10-03 16:49 | RAD ---
Chest, PA and Lateral: Technique: PA and lateral views of the chest were obtained. History: Preop. Comparison: None. Findings: The heart and pulmonary vasculature appear within normal limits. Mild prominent bilateral interstiti al lung markings probably chronic interstitial changes.. The pleural margins are clear. Impression: Minimal prominent bilateral interstitial lung markings likely chronic interstitial changes. Electronically signed by: Zak Romero MD (10/03/2020 4:47 PM) [id number]
[2020-10-04 01:09] LABS: HEMOGLOBIN A1C 5.9 % (4.8-5.6)
== END ==
LOC: SURGPAT 12:31
PROVIDERS: ATTEND Neurological Surgery
DX: Z01.818 Encounter for other preprocedural examination (principal); M51.17 Intervertebral disc disorders with radiculopathy, lumbosacral region; M48.07 Spinal stenosis, lumbosacral region
CPT/HCPCS: 36415; 71046; 80053; 83036; 85025; 85610; 85730; 87641

== ENCOUNTER → 2020-10-08 | Outpatient (CLI) | payer MEDICARE ==
[~2020-10-08] MED LIST changes: +METH-562 PO; +OXYC1TAB19 PO
== END ==
LOC: LAB 12:41
PROVIDERS: ATTEND Neurological Surgery
DX: Z01.812 Encounter for preprocedural laboratory examination (principal); Z20.822 Contact with and (suspected) exposure to COVID-19
CPT/HCPCS: U0003; U0005